=== PATIENT | female | born 1990 | race Caucasian/White ===

== ENCOUNTER 2018-05-04 20:46 | Observation (INO) ==
[2018-05-04] MEDS ORDERED: 0.9 % Sodium Chloride 1,000 ML IVC ONE ×2 (20:52→22:56)
[2018-05-04 21:16] LABS: Bilirubin,Urine Negative (Negative); Blood,Urine Negative (Negative); Clarity,Urine Cloudy (Clear); Color,Urine Yellow (Yellow); Glucose,Urine (UA) Normal (Normal); Ketones,Urine 40 mg/dL (Negative); Leukocyte Esterase,Urine Small (Negative); Nitrite,Urine Positive (Negative); Protein,Urine Trace mg/dL (Neg-Trace); Specific Gravity,Urine 1.027 (1.010-1.025); Urobilinogen,Urine Normal (Normal)
[2018-05-04 21:17] LABS: Bacteria,Urine Many per hpf (None-Few); Hyaline Casts,Urine None Seen per lpf (None-Few); Squamous Epithelial Cell,Urine Many per lpf (None-Few)
[2018-05-04 21:25] LABS: Amphetamine Screen,Urine Negative ng/mL (Cutoff=1000); Barbiturate Screen,Urine Negative ng/mL (Cutoff=200); Benzodiazepines Screen,Urine Negative ng/mL (Cutoff=200); Cannabinoid Screen,Urine Negative ng/mL (Cutoff = 50); Cocaine Screen,Urine Negative ng/mL (Cutoff= 300); Opiate Screen,Urine Negative ng/mL (Cutoff=300); Phencyclidine Screen,Urine Negative ng/mL (Cutoff=25)
[2018-05-04] MEDS ORDERED: *HR* LORazepam 2 MG/ML VIAL ONE (21:26)
[2018-05-04] MEDS ORDERED: *HR* LORazepam 2 MG/ML VIAL IVP ONE (21:30)
[2018-05-04 21:47] LABS: Basophils % 0.1 %; Eosinophils % 0.1 %; Hemoglobin 12.7 g/dL (11.5-15.4); Immature Granulocytes % 0.1 % (0-4); Lymphocytes # 2.6 K/mcL (0.6-4.6); Lymphocytes % 36.6 %; Mean Corpuscular HGB Conc 33.4 g/dL (31.6-35.5); Mean Corpuscular Hemoglobin 31.2 pg (28.0-33.3); Mean Corpuscular Volume 93.4 fL (83.0-100.0); Mean Platelet Volume 8.9 fL (9.4-12.4); Monocytes # 0.7 K/mcL (0.0-1.3); Monocytes % 9.4 %; Neutrophils # 3.9 K/mcL (1.6-8.9); Platelet Count 287 K/mcL (140-400); Red Blood Count 4.07 M/mcL (3.82-4.97); Red Cell Distribution Width 12.6 % (11.5-14.5); Segmented Neutrophils % 53.7 %
[2018-05-04 22:12] LABS: Alanine Aminotransferase 42 Units/L (7-52); Albumin 4.5 g/dL (3.5-5.7); Albumin/Globulin Ratio 1.6 (1.1-2.2); Alkaline Phosphatase 46 Units/L (34-104); Aspartate Amino Transferase 29 Units/L (13-39); BUN/Creatinine Ratio 8 (6-26); Bilirubin,Total 0.4 mg/dL (0.3-1.0); Blood Urea Nitrogen 8 mg/dL (6-20); Calcium 9.3 mg/dL (8.6-10.3); Carbon Dioxide 17 mEq/L (23-29); Chloride 106 mEq/L (98-107); Globulin 2.8 g/dL (2.4-3.5); Glucose 146 mg/dL (70-105); Osmolality,Calculated 289 (280-300); Potassium 3.1 mEq/L (3.5-5.1); Sodium 139 mEq/L (136-145); Total Protein 7.3 g/dL (6.4-8.9); eGFR For African Americans > 60 (> 60); eGFR For Non-African Americans > 60 (> 60)
[2018-05-04] MEDS ORDERED: cefTRIAXone 2,000 MG in Water for inj. (sterile) 20 ML 20 ML IVP ONE (22:56)
[2018-05-04] MEDS ORDERED: levETIRAcetam 1,000 MG in 0.9 % Sodium Chloride 100 ML IVPB ONE (23:13)
--- NOTE | 2018-05-04 23:16 | Emergency Department Note ---
Disposition Clinical Impression: Seizure, Hypokalemia UTI (urinary tract infection) Qualifiers: Urinary tract infection type: site unspecified Hematuria presence: without hematuria Qualified Code(s): N39.0 - Urinary tract infection, site not specified Disposition: Admitted As Inpatient Condition: Good Referrals: NONE,PCP [Primary Care Provider] - Seizure HPI - General Chief Complaint: ED Seizure Stated Complaint: Seizure Time Seen by Provider: 05/04/18 20:51 Source: patient Mode of arrival: ambulatory Limitations: no limitations Nursing Notes Reviewed: Yes Vital Signs Reviewed: Yes - History of Present Illness HPI Narrative: Patient presents for evaluation of seizure. Patient had seizure at home. She describes headache that started earlier in the day. She states that she gets frequent headaches. Patient typically takes [id number] medications for these. Patient took 2 Excedrin and then had seizure-like activity which is described as contractures of the upper extremities and clenching of the teeth. The patient came to the emergency department with mild drowsiness and sleepiness but mental status had improved and she is able to have a conversation. There was no focal deficits on exam. The patient does not have a history of seizures. 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 The patient has not had fevers or chills or other previous infectious symptoms. At this time the patient will undergo further evaluation for first-time seizure. - Related Data Previous Rx's Medication Instructions Recorded Amoxicillin [Amoxil] 500 mg PO TID #30 capsule 02/09/16 Ibuprofen [Motrin] 800 mg PO Q8HR #30 tablet 02/09/16 traMADol [Ultram] 50 mg PO QID PRN #16 tablet 02/09/16 Diclofenac Sodium [Voltaren] 50 mg PO Q8HR PRN #30 tablet. 03/04/16 cephALEXin [Keflex] 500 mg PO QID #40 capsule 03/04/16 Naproxen [EC-Naprosyn] 500 mg PO BID #10 tablet. 03/12/16 TraZODone 50 mg PO HS PRN #30 tablet 03/14/16 Venlafaxine HCl [Effexor Xr] 75 mg PO DAILY #30 cap.er.24h 03/14/16 Acetaminophen [Tylenol] 650 mg PO Q6HR PRN 10 Days tablet 01/06/17 MDD 3250 Ibuprofen [Motrin] 600 mg PO Q6HR PRN #40 tab MDD 3200 01/06/17 Escitalopram [Lexapro] 10 mg PO DAILY #30 tablet 03/23/17 HydrOXYzine 10 mg PO HS #30 tablet 03/23/17 Tobramycin Opth OINT [Tobrex] 0.5 inch RIGHT EYE TID #1 each 04/09/17 Allergies Allergy/AdvReac Type Severity Reaction Status Date / Time No Known Allergies Allergy Verified 03/23/17 17:25 Review of Systems: CONSTITUTIONAL: Fatigue No weight loss, fever, chills, weakness HEENT: Eyes: No visual changes. Ears, Nose, Throat: No hearing loss, difficulty talking or unable to swallow. SKIN: No rash or itching. CARDIOVASCULAR: No chest pain, chest pressure or chest discomfort. No palpitations or edema. RESPIRATORY: No shortness of breath, cough or sputum. GASTROINTESTINAL: No anorexia, nausea, vomiting or diarrhea. No abdominal pain or blood. GENITOURINARY: No burning on urination or hematuria. NEUROLOGICAL: Headache with seizure-like activity No, numbness or tingling in the extremities. No change in bowel or bladder control. MUSCULOSKELETAL: No muscle pain, back pain, joint pain or stiffness. Past Medical History - Past Medical History Medical history: Reports: no medical history Surgical history: Reports: Psychiatric history: Reports: anxiety, bipolar, depression, previous psychiatric hospitalization, other VICE PRINCIPAL history: Reports: spontaneous - Social History Smoking Status: Current every day smoker Smokeless Tobacco Status: No Alcohol use: Reports: none Drug use: Reports: marijuana Physical Exam General: Resting comfortably in bed. Mildly sleepy. Head: Normocephalic Atraumatic Eyes: PERRL, EOMI ENT: Airway patent, no stridor Neck: supple, no meningismus Chest: Lungs clear to auscultation bilateral Cardiac: Regular rate and rhythm, no murmurs, rubs or gallops Abdomen: soft, nontender, nondistended; no guarding, rebound, or tenderness to percussion Musculoskeletal: Calves symmetric, nontender, no palpable cord Skin: No rash, normal skin tone Neuro: Alert and Oriented to person, place, and time; No focal deficit, CN 2-12 symmetric and intact; upper and lower extremities 5 out of 5 with no neurovascular deficit. Finger to nose intact. - General General appearance: alert, in no apparent distress Course - Reevaluation(s) Reevaluation #1: Patient had seizure-like activity within the emergency department. Last approximately 3-4 minutes. Generalized shaking of the upper extremities. Pupils dilated and nonreactive. Clenching of the teeth. Patient was given 2 mg of IV Ativan and placed on a nonrebreather. Seizure stopped it has been controlled since. We will discuss with neurology. Urine concerning for urinary tract infection. Potassium low at 3.1. Potassium replaced. Ceftriaxone given. - Consultations Consultation #1: Discussed with neurology. This is the patient's second seizure. She can be placed on 1 g of Keppra and then placed on 250 mg twice a day. The patient can undergo MRI with contrast while observed in the hospital. They will consult. Consultation #2: Discussed with hospitalist. Patient accepted for admission. Vital Signs Temperature 97.7 F 05/04/18 20:49 Pulse Rate 94 05/04/18 20:49 Respiratory Rate 16 05/04/18 20:49 Blood Pressure 108/58 05/04/18 20:49 O2 Sat by Pulse Oximetry 99 05/04/18 20:49 Temperature 98.1 F 05/04/18 23:01 Pulse Rate 109 05/04/18 23:01 Respiratory Rate 18 05/04/18 23:01 Blood Pressure 104/56 05/04/18 23:01 O2 Sat by Pulse Oximetry 99 05/04/18 23:01 Oxygen Delivery Oxygen Delivery Room Air Seizure - Lab Data Result diagrams: 05/04/18 20:52 05/04/18 20:52 Lab Results 05/04/18 05/04/18 05/04/18 Range/Units 20:52 20:52 21:07 WBC 7.2 (4.3-11.1) K/mcL RBC 4.07 (3.82-4.97) M/mcL Hgb 12.7 (11.5-15.4) g/dL Hct 38.0 (35.3-44.9) % MCV 93.4 (83.0-100.0) fL MCH 31.2 (28.0-33.3) pg MCHC 33.4 (31.6-35.5) g/dL RDW 12.6 (11.5-14.5) % Plt Count 287 (140-400) K/mcL MPV 8.9 L (9.4-12.4) fL Immature Gran % 0.1 (0-4) % Seg Neutrophils % 53.7 % Lymphocytes % 36.6 % Monocytes % 9.4 % Eosinophils % 0.1 % Basophils % 0.1 % Neutrophils # 3.9 (1.6-8.9) K/mcL Lymphocytes # 2.6 (0.6-4.6) K/mcL Monocytes # 0.7 (0.0-1.3) K/mcL Eosinophils # 0.0 (0.0-0.6) K/mcL Basophils # 0.0 (0.0-0.2) K/mcL Sodium 139 (136-145) mEq/L Potassium 3.1 L (3.5-5.1) mEq/L Chloride 106 (98-107) mEq/L Carbon Dioxide 17 L (23-29) mEq/L BUN 8 (6-20) mg/dL Creatinine 1.00 (0.60-1.20) mg/dL Est GFR ( Amer) > 60 (> 60) Est GFR (Non-Af Amer) > 60 (> 60) BUN/Creatinine Ratio 8 (6-26) Glucose 146 H (70-105) mg/dL Calculated Osmolality 289 (280-300) Calcium 9.3 (8.6-10.3) mg/dL Total Bilirubin 0.4 (0.3-1.0) mg/dL AST 29 (13-39) Units/L ALT 42 (7-52) Units/L Alkaline Phosphatase 46 (34-104) Units/L Serum Total Protein 7.3 (6.4-8.9) g/dL Albumin 4.5 (3.5-5.7) g/dL Globulin 2.8 (2.4-3.5) g/dL Albumin/Globulin Ratio 1.6 (1.1-2.2) Urine Color Yellow (Yellow) Urine Clarity Cloudy A (Clear) Urine pH 6.0 (5.0-8.0) pH Units Ur Specific [place] 1.027 H (1.010-1.025) Urine Protein Trace (Neg-Trace) mg/dL Urine Glucose (UA) Normal (Normal) mg/dL Urine Ketones 40 H (Negative) mg/dL Urine Blood Negative (Negative) Urine Nitrite Positive A (Negative) Urine Bilirubin Negative (Negative) Urine Urobilinogen Normal (Normal) mg/dL Ur Leukocyte Esterase Small H (Negative) Urine Microscopic RBC 3-5 H (0-3) per hpf Urine Microscopic WBC 5-15 H (0-3) per hpf Ur Squamous Epith Cells Many H (None-Few) per lpf Urine Bacteria Many H (None-Few) per hpf Hyaline Casts None Seen (None-Few) per lpf Urine Opiates Screen (Foxmhw=936) ng/mL Ur Barbiturates Screen (Svvbwp=602) ng/mL Ur Phencyclidine Scrn (Cutoff=25) ng/mL Ur Amphetamines Screen (Qquekf=7060) ng/mL U Benzodiazepines Scrn (Ixfoix=368) ng/mL Urine Cocaine Screen (Cutoff= 300) ng/mL U Marijuana (THC) Screen (Cutoff = 50) ng/mL Ur Drug Screen Interp 05/04/18 Range/Units 21:07 WBC (4.3-11.1) K/mcL RBC (3.82-4.97) M/mcL Hgb (11.5-15.4) g/dL Hct (35.3-44.9) % MCV (83.0-100.0) fL MCH (28.0-33.3) pg MCHC (31.6-35.5) g/dL RDW (11.5-14.5) % Plt Count (140-400) K/mcL MPV (9.4-12.4) fL Immature Gran % (0-4) % Seg Neutrophils % % Lymphocytes % % Monocytes % % Eosinophils % % Basophils % % Neutrophils # (1.6-8.9) K/mcL Lymphocytes # (0.6-4.6) K/mcL Monocytes # (0.0-1.3) K/mcL Eosinophils # (0.0-0.6) K/mcL Basophils # (0.0-0.2) K/mcL Sodium (136-145) mEq/L Potassium (3.5-5.1) mEq/L Chloride (98-107) mEq/L Carbon Dioxide (23-29) mEq/L BUN (6-20) mg/dL Creatinine (0.60-1.20) mg/dL Est GFR ( Amer) (> 60) Est GFR (Non-Af Amer) (> 60) BUN/Creatinine Ratio (6-26) Glucose (70-105) mg/dL Calculated Osmolality (280-300) Calcium (8.6-10.3) mg/dL Total Bilirubin (0.3-1.0) mg/dL AST (13-39) Units/L ALT (7-52) Units/L Alkaline Phosphatase (34-104) Units/L Serum Total Protein (6.4-8.9) g/dL Albumin (3.5-5.7) g/dL Globulin (2.4-3.5) g/dL Albumin/Globulin Ratio (1.1-2.2) Urine Color (Yellow) Urine Clarity (Clear) Urine pH (5.0-8.0) pH Units Ur Specific [place] (1.010-1.025) Urine Protein (Neg-Trace) mg/dL Urine Glucose (UA) (Normal) mg/dL Urine Ketones (Negative) mg/dL Urine Blood (Negative) Urine Nitrite (Negative) Urine Bilirubin (Negative) Urine Urobilinogen (Normal) mg/dL Ur Leukocyte Esterase (Negative) Urine Microscopic RBC (0-3) per hpf Urine Microscopic WBC (0-3) per hpf Ur Squamous Epith Cells (None-Few) per lpf Urine Bacteria (None-Few) per hpf Hyaline Casts (None-Few) per lpf Urine Opiates Screen Negative (Xbxldr=222) ng/mL Ur Barbiturates Screen Negative (Aiiwfq=272) ng/mL Ur Phencyclidine Scrn Negative (Cutoff=25) ng/mL Ur Amphetamines Screen Negative (Hcuejq=1759) ng/mL U Benzodiazepines Scrn Negative (Yuejal=079) ng/mL Urine Cocaine Screen Negative (Cutoff= 300) ng/mL U Marijuana (THC) Screen Negative (Cutoff = 50) ng/mL Ur Drug Screen Interp See Below
[2018-05-04] MEDS ORDERED: Ondansetron 4 MG/2 ML VIAL ONE (23:42)
[2018-05-04] MEDS ORDERED: Ondansetron 4 MG/2 ML VIAL IVP ONE (23:43)
[2018-05-05] MEDS ORDERED: Acetaminophen 325 MG TABLET PO PRN (00:22)
[2018-05-05] MEDS ORDERED: Naloxone 0.4 MG/ML INJ IVP PRN (00:22)
[2018-05-05] MEDS ORDERED: *HR* LORazepam 2 MG/ML VIAL IVP PRN (00:25)
[2018-05-05] MEDS ORDERED: Metoclopramide 10 MG/2 ML VIAL IVP ONE (00:32)
--- NOTE | 2018-05-05 00:50 | Internal Med History&Physical ---
Date of Encounter: 05/05/18 Time of Encounter: 00:15 Internal Medicine - H&P: HPI Chief complaint: Seizure Admitted From: Home Plans for Post Hospital Care: Home History of present illness: Ms. Aguilar is a 28 year old female present to ER for seizure activity. Past medical history is significant for anxiety and depression. Patient has 2 seizure activity today. One of them is witnessed by ER nurse. Patient has generalized seizure with whole-body shaking. Patient has postictal confusion for about 20 minutes. Patient denies tongue bite. Patient had urinary incontinence during seizure. Patient was given Keppra 1000 mg IV once and Ativan 2 mg IV once in the emergency room. Her seizure has been controlled. Patient denies previous seizure. Patient had "brain bleeding" in last year July (old CT results reviewed, which shows epidural hematoma). Repeat a CT scan in ER shows no acute abnormalities. Neurology was counseled by ER doctor, recommend Keppra 250 twice a day and MRI in a.m. Patient was admitted for further management. Past Med Surg Social Fam HX - Past Medical History Medical history: no medical history Psychiatric history: anxiety, bipolar, depression, previous psychiatric hospitalization, other - Past Surgical History Surgical History: Additional surgical history: D&C - Social History Smoking Status: Current every day smoker Smokeless Tobacco Status: No Alcohol use: none Drug use: marijuana - Family History Mother History Unknown: Yes Internal Medicine - H&P: Meds No Known Home Drugs 05/05/18 [History] 3 Allergy/AdvReac Type Severity Reaction Status Date / Time No Known Allergies Allergy Verified 03/23/17 17:25 All Systems PM: A 10-system review of systems was performed and is negative for pertinent findings except as documented above in the HPI. - Constitutional Vitals: Temp Pulse Resp BP Pulse Ox 98.1 F 109 17 106/53 99 05/04/18 23:01 05/04/18 23:01 05/05/18 00:35 05/05/18 00:35 05/04/18 23:01 General appearance: Present: A&O X 3, no acute distress, answers questions appropriately - Head Head exam: Present: atraumatic, normocephalic - Eye Eye exam: Present: PERRL, conjuntiva pink, sclera anicteric Pupils: Present: PERRL - Neck Neck exam general surgery: Present: supple, trachea midline. Absent: lymphadenopathy - Respiratory Respiratory exam: Present: CTAB. Absent: accessory muscle use, rales, rhonchi, wheezes - Cardiovascular Cardiovascular exam: Present: RRR, +S1, +S2. Absent: diastolic murmur, gallop, rubs, systolic murmur - GI/Abdominal GI/Abdominal exam: Present: normal bowel sounds, soft, no peritoneal signs. Absent: distended, tenderness - Extremities Exam Extremities exam: Present: warm, radial pulses palpable and symmetrical. Absent : calf tenderness, cyanotic, pedal edema - Neurological Exam Neurological exam: Present: CN II-XII intact, oriented X3, no focal deficits. Absent: pronater drift, facial droop, speech deficit - Skin Skin exam: Present: dry, intact Internal Med - H&P Results - Labs CBC & Chem 7: 05/04/18 20:52 05/04/18 20:52 - Assessment and plan (1) DVT prophylaxis Current Visit: Yes Status: Acute Assessment and plan: Patient is young and ambulating well. No anticoagulation placed (2) Hypokalemia Current Visit: Yes Status: Acute Assessment and plan: Patient was given potassium supplement in the emergency room. Follow-up potassium level in a.m. (3) Seizure Current Visit: Yes Status: Acute Assessment and plan: Etiology is undetermined. Patient to report history of intracranial hemorrhage. Patient has no history of epilepsy. - Place patient on continuous cardiac monitoring - Keppra loading dose 1000 mg IV given in ER, follow-up with to 250 mg IV twice a day. - Neurology consult - MR brain in a.m. - Seizure precaution, aspiration precaution - Ativan 2mg IV when necessary for seizure activity (4) UTI (urinary tract infection) Current Visit: Yes Status: Acute Assessment and plan: UA shows UTI. Rocephin IV was started by ER, will continue. Follow-up urine culture. Qualifiers: Urinary tract infection type: site unspecified Hematuria presence: without hematuria Qualified Code(s): N39.0 - Urinary tract infection, site not specified (5) Tobacco abuse Current Visit: Yes Status: Acute Assessment and plan: Smoking cessation education. Patient said she does not need nicotine patch - Time Spent With Patient Total time spent is greater than 50% in coordination of care (as documented) at patient's floor/unit and/or counseling patient: 40 minutes Greater than 35 minutes
[2018-05-05 03:42] LABS: Basophils % 0.2 %; Eosinophils % 0.2 %; Hematocrit 30.4 % (35.3-44.9); Immature Granulocytes % 0.2 % (0-4); Lymphocytes # 1.7 K/mcL (0.6-4.6); Lymphocytes % 26.5 %; Mean Corpuscular HGB Conc 32.9 g/dL (31.6-35.5); Mean Corpuscular Hemoglobin 29.9 pg (28.0-33.3); Mean Platelet Volume 9.1 fL (9.4-12.4); Monocytes # 0.5 K/mcL (0.0-1.3); Monocytes % 8.2 %; Neutrophils # 4.1 K/mcL (1.6-8.9); Platelet Count 207 K/mcL (140-400); Red Blood Count 3.34 M/mcL (3.82-4.97); Red Cell Distribution Width 12.7 % (11.5-14.5); Segmented Neutrophils % 64.7 %
[2018-05-05 04:19] LABS: BUN/Creatinine Ratio 10 (6-26); Blood Urea Nitrogen 7 mg/dL (6-20); Calcium 8.1 mg/dL (8.6-10.3); Carbon Dioxide 19 mEq/L (23-29); Chloride 114 mEq/L (98-107); Chol/HDL Ratio 1.8 (0-4.9); Cholesterol 73 mg/dL (< 200); Glucose 95 mg/dL (70-105); HDL Cholesterol 41 mg/dL (40-59); LDL Cholesterol,Calculated 26 mg/dL (0-99); Magnesium 1.9 mg/dL (1.6-2.6); Osmolality,Calculated 288 (280-300); Phosphorous 3.6 mg/dL (2.7-4.5); Sodium 140 mEq/L (136-145); Triglycerides 28 mg/dL (< 150); eGFR For African Americans > 60 (> 60); eGFR For Non-African Americans > 60 (> 60)
[2018-05-05] MEDS ORDERED: levETIRAcetam 250 MG in 0.9 % Sodium Chloride 100 ML IVPB SCH (09:00)
--- NOTE | 2018-05-05 14:19 | Neurology - Consult Note ---
Date of Encounter: 05/05/18 Time of Encounter: 14:15 Assessment and Plan (1) New onset seizure Current Visit: Yes Status: Acute This patient who apparently had 2 generalized tonic-clonic seizure 1 with urinary incontinence weakness in the emergency room without any focal findings on her neurological examination and without any evidence of bleed or infarct on her CT or MRI. She does have a history of subdural in the past as well as a history of substance abuse perhaps could be the contributing factor though currently her urine tox was negative. Considering to generalized tonic-clonic witnessed seizure typical description I think she would benefit from being on antiepileptic medication She is already been is started on the Keppra suggested to continue she should be on seizure precautions : Patient was asked not to drive until seizure-free for 6 months. Patient was asked not to work in close proximity of machines with moving parts, not to swim unsupervised, not to take tub baths or showers with water accumulation, and not to work at high places. at the same time she should use precautions, and should NOT get while on seizures medications, and if she plan to get she should discuss it with neurology and her OB in advance. 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 The mass expands the bone and slightly deforms the right cerebellar hemisphere. There is no adjacent brain edema or invasion. The mass measures 2.1 x 1.8 x 1.9 cm. It is relatively stable since 2015. DONT THINK REASON FOR HER SEIZURES, but history of previous bleed can be the reason for her seizures History of Present Illness HPI: Ms. Aguilar is a 28 year old female admitted via ER for new onset seizures, Past medical history is significant for anxiety and depression. According to the report patient had generalized tonic-clonic seizure earlier and then in the emergency room she has another episode witnessed by ER nurses. Patient has generalized convulsion with tonic-clonic activity followed by postictal confusion for about 20 minutes. Patient had urinary incontinence during seizure, but did not have tongue bite she was given Keppra 1000 mg IV once and Ativan 2 mg IV once in the emergency room. Patient denies previous seizure. Patient had "brain bleeding" in last year July (old CT results reviewed, which shows epidural hematoma). Repeat a CT scan in ER shows no acute abnormalities. Now patient seemed to be back to her baseline no focal motor deficit she just woke up and sleepy Past Med Surg Social Fam HX - Past Medical History Medical history: no medical history Psychiatric history: anxiety, bipolar, depression, previous psychiatric hospitalization, other - Past Surgical History Surgical History: Additional surgical history: D&C - Social History Smoking Status: Current every day smoker Smokeless Tobacco Status: No Alcohol use: none Drug use: marijuana - Family History Mother History Unknown: Yes Medications and Allergies No Known Home Drugs 05/05/18 [History] 3 Allergy/AdvReac Type Severity Reaction Status Date / Time No Known Allergies Allergy Verified 03/23/17 17:25 All Systems: The remainder of the systems were reviewed and are negative Physical Examination - Vital Signs Vital Signs: Initial Vital Signs Temp Pulse Resp BP Pulse Ox 97.7 F 94 16 108/58 99 05/04/18 20:49 05/04/18 20:49 05/04/18 20:49 05/04/18 20:49 05/04/18 20:49 - Exam Exam: GENERAL: Comfortable in no acute distress HEENT: Normal LUNGS: CTA HEART: RRR, S1 S2 Audible, no murmur EXTREMITIES: No Pedal edema. DETAILED NEUROLOGICAL EXAMINATION: MENTAL STATUS: Oriented to person, place, date and situation. Memory: knows the President, Aware of recent events Recent Memory Intact Cranial Nerve Examination: CN - II: Visual Acuity, Field of Vision Normal, Fundus examination: No disk edema, Pupils- size shape reaction to light and accommodation: All normal. CN III, IV, : External ocular movements were intact, Pupils were reactive, Nodrooping of the eyelids CN V: Sensation over the face to light touch and pinprick all normal. Corneal reflexes not tested, jaw jerk normal. CN VII: No facial asymmetry, no flattening of nasolabial folds, no difficulty in closing the eyes, no loss of forehead wrinkles, no difficulty in eye-closure, frowning raising eyebrows. CNVIII: No significant hearing loss CN IX, X: Uvula centralized not deviated, Gag reflex: Not tested CN X1: Sternocleidomastoid, trapezius, normal or evidence of any weakness. CN X11: No Dysarthria, no wasting or fibrilation f tongue muscles, no deviation, tongue muscle strength normal. Motor examination: No hypertrophy, tone was normal, power grade 0-5 Upper limbs Proximal- No difficulty in lifting the arms above the head. Distal- No weakness in distal muscles On formal testing 5/5 all over Lower limbs On formal testing 5/5 all over Coordination: Aoatpi-cb-gisp normal. Target pursuit normal finger tapping normal, Rapid alternating moment of wrist normal Sensory system: Superficial sensations- Touch normal. Pain- Pinprick, Temperature all normal, Deep sensation normal, Joint position sense normal. Cortical sensation, Tactile discrimination, localization and extinction all normal. Deep tendon reflexes. Symmetrical bilateral, No evidence of Babinski. No sign of meningeal irritation Gait Examination: Deferred Results - Laboratory Findings CBC and BMP: 05/05/18 03:20 05/05/18 03:20 Abnormal lab findings: Abnormal lab results RBC 3.34 M/mcL (3.82-4.97) L 05/05/18 03:20 Hgb 10.0 g/dL (11.5-15.4) L D 05/05/18 03:20 Hct 30.4 % (35.3-44.9) L 05/05/18 03:20 MPV 9.1 fL (9.4-12.4) L 05/05/18 03:20 Chloride 114 mEq/L (98-107) H 05/05/18 03:20 Carbon Dioxide 19 mEq/L (23-29) L 05/05/18 03:20 Calcium 8.1 mg/dL (8.6-10.3) L 05/05/18 03:20 Urine Clarity Cloudy (Clear) A 05/04/18 21:07 Ur Specific [place] 1.027 (1.010-1.025) H 05/04/18 21:07 Urine Ketones 40 mg/dL (Negative) H 05/04/18 21:07 Urine Nitrite Positive (Negative) A 05/04/18 21:07 Ur Leukocyte Esterase Small (Negative) H 05/04/18 21:07 Urine Microscopic RBC 3-5 per hpf (0-3) H 05/04/18 21:07 Urine Microscopic WBC 5-15 per hpf (0-3) H 05/04/18 21:07 Ur Squamous Epith Cells Many per lpf (None-Few) H 05/04/18 21:07 Urine Bacteria Many per hpf (None-Few) H 05/04/18 21:07 - Diagnostic Findings Additional findings: CT scan of the head shows An intraosseous, spherical, circumscribed, nonenhancing, partially diffusion restricting, lamellated appearing mass is in the right occipital bone. The mass expands the bone and slightly deforms the right cerebellar hemisphere. There is no adjacent brain edema or invasion. The mass measures 2.1 x 1.8 x 1.9 cm. It is relatively stable since 2014. No evidence of any bleed reported history of Left occipital 9mm subdural Hematoma noted on CT may 15, not noticed on current CT or MRI Consult Discharge Plan - Plan Referrals: NONE,PCP [Primary Care Provider] -
[2018-05-05 15:23] VITALS: BP 101/61
--- NOTE | 2018-05-05 16:09 | Discharge Summary ---
<Shen Peterson - Last Filed: 05/05/18 16:06> - NOTES TO OUTPATIENT PROVIDER Notes to Outpatient Provider: Ms. Aguilar was admitted for observation after 2 tonic-clonic seizures on 05/05. Started her on Keppra 250 BID. Orders not resulted at time of discharge: Pending orders 05/05/18 03:30 Culture,Urine [RM] AM 0400 Date of Encounter: 05/05/18 Time of Encounter: 16:06 - Discharge Diagnosis (1) Seizure Priority: Primary Status: Acute Assessment and Plan: Per Neurology recommendations, see below: Keppra 250mg BID she should be on seizure precautions : Patient was asked not to drive until seizure-free for 6 months. Patient was asked not to work in close proximity of machines with moving parts, not to swim unsupervised, not to take tub baths or showers with water accumulation, and not to work at high places. at the same time she should use precautions, and should NOT get while on seizures medications, and if she plan to get she should discuss it with neurology and her OB in advance. EEG could be done as outpatient f/u in neurology in 3/4 weeks (2) Hypokalemia Priority: Secondary Status: Resolved Assessment and Plan: given potassium and labs this AM revealed level at 4.0 (3) UTI (urinary tract infection) Priority: Secondary Status: Acute Assessment and Plan: Pt received Rocephin while admitted. Will send home with Cipro rx. Qualifiers: Urinary tract infection type: site unspecified Hematuria presence: without hematuria Qualified Code(s): N39.0 - Urinary tract infection, site not specified (4) Tobacco abuse Priority: Secondary Status: Acute Assessment and Plan: Smoking cessation encouraged Hospital course: Ms. Aguilar is a 28 year old female Discharge discussed with: patient, family, nurse Time spent discussing smoking cessation with patient: 3 to 10 minutes - Time Spent with Patient Total time spent providing and/or coordinating discharge services: - Discharge Medications Prescriptions: Ciprofloxacin HCl [Cipro] 250 mg PO BID 3 Days #6 tab levETIRAcetam [Keppra] 250 mg PO BID 30 Days #60 tablet Home Medications: Ciprofloxacin HCl [Cipro] 250 mg PO BID 3 Days #6 tab 05/05/18 [Rx] levETIRAcetam [Keppra] 250 mg PO BID 30 Days #60 tablet 05/05/18 [Rx] Allergies/Adverse Reactions: 3 Allergy/AdvReac Type Severity Reaction Status Date / Time No Known Allergies Allergy Verified 03/23/17 17:25 Date of admission: 05/05/18 00:00 Primary care physician: PCP NONE Discharging clinician: Shen Peterson - Constitutional Vitals: Temp Pulse Resp BP Pulse Ox 98.2 F 93 18 101/61 98 05/05/18 15:21 05/05/18 15:21 05/05/18 15:21 05/05/18 15:21 05/05/18 15:21 General appearance: Present: A&O X 3, no acute distress, answers questions appropriately Exam: Head: normocephalic, atraumatic Eyes: PERRL, EOMI, conjunctiva pink, sclera anicteric Neck: supple, trachea midline Lungs: CTA bilaterally. No wheezes, rales, or rhonchi noted. Heart: RRR. No murmurs, clicks, or rubs GI: abdomen soft, non-tender, non-distended Extremities: warm, normal ROM Neuro: A&Ox3, no focal deficits, no speech difficulty Skin: warm, dry, intact - Patient Status Disposition: Home, Self-Care Condition: Good Functional capacity at discharge: independent ambulation Overall status at discharge: patient is back to baseline - Discharge Instructions Instructions: Epilepsy (DC) Follow Up With: John Paul Hutchins MD [Partnered Physician] - (office will call you to schedule appointment in the next few weeks as a follow up for the seizure activity.) NONE,PCP [Primary Care Provider] - Forms: Inpatient Work/School Release - Diet and Activity Activity: resume usual activities as tolerated Diet: regular diet <Mariano Franco - Last Filed: 05/05/18 18:17> Orders not resulted at time of discharge: Pending orders 05/05/18 03:30 Culture,Urine [RM] AM 0400 Date of Encounter: 05/05/18 - Discharge Diagnosis (1) Tonic-clonic seizure disorder Priority: Primary Status: Acute (2) Seizure Status: Acute (3) Hypokalemia Status: Resolved (4) UTI (urinary tract infection) Status: Acute Qualifiers: Urinary tract infection type: acute cystitis Hematuria presence: without hematuria Qualified Code(s): N30.00 - Acute cystitis without hematuria (5) Tobacco abuse Status: Acute Hospital course: Ms. Aguilar is a 28 year old female - Time Spent with Patient Total time spent providing and/or coordinating discharge services: Date of admission: 05/05/18 00:00 Primary care physician: PCP NONE - Constitutional Vitals: Temp Pulse Resp BP Pulse Ox 98.2 F 93 18 101/61 98 05/05/18 15:21 05/05/18 15:21 05/05/18 15:21 05/05/18 15:21 05/05/18 15:21 - Attending Attestation I examined this patient and my medical decision-making was reviewed with the Resident Physician on 05/05/18. I agree with the documented findings, disposition and treatment plan as described except to the extent set forth below. Ms Aguilar has been in observation for acute seizure. She has had no recurrence. She has been seen by ortho and is OK to go home. She is not to drive for 6 months or do other dangerous activities (documented in neuro note and above). She is now afebrile and ready for discharge Exam alert Comfortable Heart reg No wheeze abd soft Plan D/C home today.
[2018-05-05] MEDS ORDERED: cefTRIAXone 1,000 MG in Water for inj. (sterile) 20 ML 10 ML IVPB SCH (18:00)
--- NOTE | 2018-05-07 15:38 | Electrocardiograph Report ---
[address] [place], [place] [address] Test Date: 2018-05-04 Pat Name: Cheyenne Aguilar Department: 104 Room: 2NE19 Gender: F Mechanical Cad Drafter: : 1990 Requested By: [id number] Order Number: [id number] Reading MD: Nadir Ocampo Measurements Intervals [place] Rate: 86 P: 67 PA: 116 QRS: 81 QRSD: 80 T: 41 QT: 387 QTc: 431 Interpretive Statements SINUS RHYTHM WITH SHORT PA INTERVAL Electronically Signed On 05-07-2018 15:36:44 EDT by Nadir Ocampo
== END 2018-05-05 17:29 | disposition home or self-care (01) ==
LOC: EMEROO 20:46 → 2NENU 20:46 → SUATTDRO 05-05 → 2NENU 05-05 00:50
PROVIDERS: ADMIT General Practice; ATTEND Internal Medicine

== ENCOUNTER 2018-10-10 17:25 | Observation (INO) ==
[2018-10-10 17:45] LABS: Bilirubin,Urine Negative (Negative); Blood,Urine Negative (Negative); Clarity,Urine Clear (Clear); Color,Urine Yellow (Yellow); Glucose,Urine (UA) Normal (Normal); Ketones,Urine Negative (Negative); Leukocyte Esterase,Urine Negative (Negative); Nitrite,Urine Negative (Negative); PH,Urine 6.5 pH Units (5.0-8.0); Protein,Urine Negative (Neg-Trace); Specific Gravity,Urine 1.014 (1.010-1.025); Urobilinogen,Urine Normal (Normal)
--- NOTE | 2018-10-10 18:11 | OB/GYN Progress Note ---
Date of Encounter: 10/10/18 Time of Encounter: 18:09 - Assessment and Plan (1) Spotting and cramping affecting , antepartum Current Visit: Yes Status: Acute 4 day history of cramping and spotting which began after intercourse Cramping is intermittent and diffuse Admits to increased vaginal discharge Speculum exam shows white discharge, no bleeding, cervix closed U/A normal UDS + benzodiazapines G/C negative Vaginosis panel positive for BV. Rx flagyl. Discharge home with precautions. (2) 20 weeks gestation of Current Visit: Yes Status: Acute , 20w3d gestation Complicated by substance abuse, tobacco use (3) Substance abuse affecting , antepartum Current Visit: Yes Status: Acute History of opiate dependence Currently on subutex with [facility] Admits to taking larger doses than prescribed of subutex, is currently out of subutex Admits to buying percocet off the street and taking FOB's gabapentin Pt offered option to stay overnight for managment of her withdrawal sx and so she can talk to her subutex provider tomorrow morning. Pt declines. Pt in structed to contact [facility] in the morning to make arrangements since she plans to miss group tomorrow for a job interview. (4) Bacterial vaginosis Current Visit: Yes Status: Acute Discharge home with flagyl rx. Subjective - Subjective Principal diagnosis: Cramping at 20 weeks gestation of Interval history: Cheyenne Aguilar is a 28 y/o female presenting for cramping and spotting. She is at 20w3d and has care with Dr. Baker. [facility] heroin abuse, currently in [facility] for subutex, anxiety and depression. The cramping and spotting began 4 days ago after intercourse, cramping is intermittent, diffuse, and lasts about 1 minute. She also admits to increased vaginal discharge. She states that she has been taking larger doses than prescribed of her subutex and has run out. She has been buying percocet off the street and taking gabapentin that is prescribed to father of baby. She denies nausea, vomiting, fever, chills, chest pain, shortness of breath, dysuria or edema. Antepartum ROS: other (Cramping and spotting) Objective - Vital Signs Vital Signs: Intake and Output 10/10/18 10/10/18 10/10/18 07:59 15:59 23:59 Other: Weight 57 kg Patient Weight 10/10/18 23:59 Weight 57 kg - Exam FHR comments: FHR 135 bpm on doppler Auscultation: bilateral: normal Abdomen: Present: normal appearance, soft, gravid Uterus: Present: normal, firm Cervical dilation: 0 Comments: White discharge present on speculum exam, no bleeding noted, cervix is closed.
[2018-10-10 18:22] LABS: Amphetamine Screen,Urine Negative ng/mL (Cutoff=1000); Barbiturate Screen,Urine Negative ng/mL (Cutoff=200); Benzodiazepines Screen,Urine Positive ng/mL (Cutoff=200); Cannabinoid Screen,Urine Negative ng/mL (Cutoff = 50); Cocaine Screen,Urine Negative ng/mL (Cutoff= 300); Opiate Screen,Urine Negative ng/mL (Cutoff=300); Phencyclidine Screen,Urine Negative ng/mL (Cutoff=25)
[2018-10-10 19:35] LABS: Candida DNA Not Detected (Not Detect); Gardnerella DNA DETECTED (Not Detect); Trichomonas DNA Not Detected (Not Detect)
== END 2018-10-10 20:20 | disposition home or self-care (01) ==
LOC: 1NENULAB
PROVIDERS: ADMIT Registered Nurse; ATTEND Registered Nurse

== ENCOUNTER 2019-02-27 19:21 | Inpatient (IN) ==
[2019-02-27 19:07] LABS: Basophils % 0.2 %; Eosinophils # 0.1 K/mcL (0.0-0.6); Eosinophils % 0.6 %; Hematocrit 44.3 % (35.3-44.9); Hemoglobin 14.9 g/dL (11.5-15.4); Immature Granulocytes % 0.6 % (0-4); Lymphocytes # 2.3 K/mcL (0.6-4.6); Lymphocytes % 21.9 %; Mean Corpuscular HGB Conc 33.6 g/dL (31.6-35.5); Mean Corpuscular Hemoglobin 31.8 pg (28.0-33.3); Mean Corpuscular Volume 94.7 fL (83.0-100.0); Mean Platelet Volume 10.6 fL (9.4-12.4); Monocytes # 0.7 K/mcL (0.0-1.3); Monocytes % 6.3 %; Neutrophils # 7.5 K/mcL (1.6-8.9); Platelet Count 191 K/mcL (140-400); Red Blood Count 4.68 M/mcL (3.82-4.97); Red Cell Distribution Width 12.4 % (11.5-14.5); Segmented Neutrophils % 70.4 %
[2019-02-27 19:16] LABS: Amphetamine Screen,Urine Negative ng/mL (Cutoff=1000); Barbiturate Screen,Urine Negative ng/mL (Cutoff=200); Benzodiazepines Screen,Urine Negative ng/mL (Cutoff=200); Cannabinoid Screen,Urine Negative ng/mL (Cutoff = 50); Cocaine Screen,Urine Negative ng/mL (Cutoff= 300); Opiate Screen,Urine Negative ng/mL (Cutoff=300); Phencyclidine Screen,Urine Negative ng/mL (Cutoff=25)
--- NOTE | 2019-02-27 19:16 | OB/GYN History & Physical ---
Date of Encounter: 02/27/19 Time of Encounter: 19:03 Assessment and Plan (1) History of trichomonal vaginitis Current visit: Yes Status: Acute Treated in November test of cure for 02/14 negative (2) Elevated AFP Current visit: Yes Status: Acute Ultrasound and growth followed by M (3) Substance abuse affecting , antepartum Current visit: Yes Status: Acute Obtain Subutex from [facility] (4) Tobacco abuse Current visit: Yes Status: Acute (5) 40 weeks gestation of Current visit: Yes Status: Acute (6) Uterine contractions Current visit: Yes Status: Acute Admit to labor and delivery Epidural as desired Frequent repositioning TOLAC desired to transfer care to Dr. Auguste Anticipate (7) History of low transverse section Current visit: Yes Status: Acute Medical records from last section available, low transverse incision confirmed (8) Hepatitis C Current visit: Yes Status: Acute History of elevated liver enzymes we will check LFTs at this time and hepatitis C titer levels Qualifiers: Viral hepatitis chronicity: chronic Hepatic coma status: without hepatic coma Qualified Code(s): B18.2 - Chronic viral hepatitis C (9) History of seizures Current visit: Yes Status: Acute Patient was seen in ED and 2018 procedures. According to documentation patient was discharged home on Keppra twice a day, patient states she was never discharge discharged on any home medications and subsequently did not take any home medication, no further seizures since incident. History of Present Illness Chief complaint: Contractions HPI: Ms. Aguilar is a 29 year old female 40+3 weeks gestation presents to triage with reports of contractions. Patient states she started having contractions earlier today had becoming stronger more intense. Reports good movement, denies vaginal bleeding or leaking of fluid. care with Dr. Baker, gap in care during due to incarceration, elevated AFP in ultrasounds followed by MFM, history drug abuse, currently on Subutex, Trichomonas during , Pap with ASCUS and positive HPV, opiate use of , history of low transverse section for breech Labs: A+, rubella and varicella immune, GBS negative, all other serologies negative Past Med Surg Social Fam HX - Past Medical History Source: patient Medical history: seizures Additional medical history: Pt. states had "2 random seizures" last year (Testing negative) Psychiatric history: anxiety, bipolar, depression, previous psychiatric hospitalization, other - Past Surgical History Surgical History: Additional surgical history: 08/28/2013 - Social History Smoking Status: Current every day smoker Packs per day: 1/2 PPD Smokeless Tobacco Status: No Alcohol use: none Drug use: other - Family History Brother Hx Family Neurologic Disorders: Yes (hx of seizures) Obstetrical History - Pregnancies : 4 Para: 2 Term: 2 : 0 Ab's: 1 Livin Medications and Allergies Flintstones 1 tab PO DAILY 10/10/18 [History] Subutex 8 mg PO ONCE 10/10/18 [History] Allergy/AdvReac Type Severity Reaction Status Date / Time No Known Allergies Allergy Verified 03/23/17 17:25 Exam - Constitutional Constitutional: well developed, well nourished, no acute distress, average body habitus - Neck Neck exam: full ROM - Lungs Respiratory exam: CTAB - Cardiovascular Cardiovascular exam: RRR - Abdomen Abdomen: Present: gravid, non tender - Extremities Extremities exam: normal capillary refill, normal inspection - Cervix Dilation: 4 Results Result Diagrams: 02/27/19 18:40 All other labs normal. - VTE Reasons for not Prescribing Prophylaxis: Treatment not Indicated - Low risk for VTE
[~2019-02-27 19:21] MED LIST: Famotidine 20 MG/2 ML VIAL IVP PRN; Metoclopramide 10 MG/2 ML VIAL IVP PRN; Naloxone 0.4 MG/ML INJ IVP PRN; Ondansetron 4 MG/2 ML VIAL IVP PRN; Ringers Solution, Lactated 1,000 ML IVC SCH; Ringers Solution, Lactated 1,000 ML ONE
[2019-02-27] MEDS ORDERED: *HR* FentaNYL (PF) 100 MCG/2 ML VIAL ONE (19:44)
[2019-02-27] MEDS ORDERED: Bupivacaine-MPF 0.25% 10 ML VIAL ONE (19:44)
[2019-02-27] MEDS ORDERED: Lidocaine -MPF 2% 5 ML VIAL ONE (19:44)
[2019-02-27] MEDS ORDERED: Epidural Premix (fent/bupiv) 110 ML EP SCH (19:45)
[2019-02-27] MEDS ORDERED: Epidural Premix (fent/bupiv) 110 ML EP ONE (19:46)
--- NOTE | 2019-02-27 20:36 | OB Labor Progress Note ---
Date of Encounter: 02/27/19 Time of Encounter: 20:33 Labor Progress Note - Subjective Subjective: The patient reports being comfortable right after epidural placement. Called to the room due to heart rate deceleration - Vital Signs Vital Signs: Afebrile, vital signs stable with some transient relative hypotension following epidural placement - Cervix Cervix: 5/90/-1, vertex with a bulgy bag of water - Heart Tones Heart Tones: Variable deceleration for 2 minutes with return to baseline of 130s to 140s and reassuring pattern - [place]: Every 3-5 minutes, spacing out after epidural - Interventions Interventions: 40 week IUP with TAYLER before meals status post epidural placement with transient hypotension and bradycardia. Heart rate reassuring now with a reassuring pattern. Spontaneous contractions continued to occur - Plan Plan: Once that has been intrauterine resuscitation and heart rate tracing is stable, amniotomy is planned
--- NOTE | 2019-02-27 21:48 | Anesthesia Evaluation PreOp ---
Date of Encounter: 02/27/19 Time of Encounter: 19:27 - Past History Planned Operation: labor epidural Cardiac History: Denies any Significant Hx Pulmonary History: Smoker (1/2 ppd, no asthma or other problems.) TRAVEL AGENT History: Seizures (reports "seizure-like activity X2 last summer. Was evaluated and determined to likely be due to anxiety. No problems since, on no meds.), Other (Anxiety/depression) Other Medical History: Hepatic (Hepatitis C positive, diagnosed december 2014. States due to former IV drug use.), Other (on subutex since July 2018. States grajeda not used IV drugs since 2016.) Anesthesia History: No Prior Anesthetic Complications, Past Anesthesia (Has had a D&C and emergent c section with no problems with GA. No FHAP. Had epidural X@ without problems.) : Yes (, first del. vaginal, second del. c/s 2012.) Alcohol Use: none Drug use: other Medications and Allergies Flintstones 1 tab PO DAILY 10/10/18 [History] Subutex 8 mg PO ONCE 10/10/18 [History] Allergy/AdvReac Type Severity Reaction Status Date / Time No Known Allergies Allergy Verified 03/23/17 17:25 - Meds/Allergy Pre-op Review Medications Reviewed: Yes Allergies Reviewed: Yes Beta Blockers on Current Med List: No Anesthesia Results - Labs 02/27/19 18:40 Anesthesia Exam 115/76, 80, 16. FHTs 130s. Height: 5'8" Weight: 66kg NPO (# of Hours): 3 Pain Scale: 8 Pain Scale Used: Numeric (1 - 10) - HEENT Pupil (Motor): Pupils equal Mallampati: II Teeth: Normal Oral Opening: Greater than 3 - TRAVEL AGENT LOC: Oriented TRAVEL AGENT Motor: Normal RUE, Normal LUE, Normal RLE, Normal LLE, Normal Face TRAVEL AGENT Sensory: Normal: RUE, LUE, RLE, LLE, Face - Cardiac Rhythm: Regular - Pulmonary Breath Sounds: bilateral Clear Respiratory Effort: Symmetrical Anesthesia Assess/Plan ASA Score: 3 (smoker, Hepatitis C, former IV drug user and on subutex, , anxiety/depression.) Level of consciousness: Cooperative, Oriented, Tranquil Anesthetic Plan: Epidural Monitoring Plan: Standard Monitors
--- NOTE | 2019-02-27 21:55 | OB Labor Progress Note ---
Date of Encounter: 02/27/19 Time of Encounter: 21:50 Labor Progress Note - Subjective Subjective: The patient is comfortable with her epidural. - Vital Signs Vital Signs: afeb,VSS - Cervix Cervix: 7/100/-1, vtx w/ BBOW - Heart Tones Heart Tones: 140s baseline, CAT 1 - [place]: Discharge. 3-4 minutes spontaneous - Interventions Interventions: 40.3 week IUP with spontaneous labor, TOLAC. Occasional heart rate decelerations but no repetitive pattern. Patient is doing well with her epidural. History of hep C positive without recent titers - Plan Plan: Amniotomy with moderate to large amount of pink tinged fluid seen followed by clear fluid.
--- NOTE | 2019-02-27 21:59 | Anesthesia Procedures ---
Date of Encounter: 02/27/19 Time of Encounter: 19:46 Procedures: Anesthesia - Epidural/Spinal Patient ID/Chart reviewed: Yes Patient examined: Yes OB Eval: Gestational age: 40 OB Eval: : 4 OB Eval: Hx Para: 2 (prev. del. c/s) OB Eval: Dilated at (cm): 4 OB Eval: Contractions: Non-stressed pattern Consent Obtained: Yes Supplemental Oxygen: None/Room Air Site Prep: Aseptic Technique, Sterile prep and drape, Povidone-Iodine 1% Patient position: upright Local Anesthetic: Lidocaine 1% Amount of Local Anesthetic used: 3 Touhy Needle Gauge: 18 Touhy Needle Depth (cm): 5 Catheter Depth at Skin (cm): 15 Test Dose (1.5% Lido + Epi): Volume given (mls): 3 Test Dose Result: Negative Loading Dose: 0.25% Marcaine (mls): 8 Loading Dose: Fentanyl (mcg): 100 Loading Dose Administered: Thru Catheter Infusion Med: 0.125% Bupivacaine w/ 2 mcg/ml Fentanyl Infusion Rate (mls/hr): [address]: Tegaderm, Tape Interspace Used: L3-L4 Loss of Resistance (BAKARI): Yes Blood: No CSF: No Paresthesia: No Procedure: IV #2 started right inner wrist, 20G with jloop and capped. Attempted 18G in right inner FA without success. Vitals + FHT's: Vital Signs Time 1944 1999 2004 2009 2014 2019 BP 115/76 132/86 124/80 118/77 112/73 127/78 Pulse 80 84 85 84 101 104 FHTs 130 130 130 130 130 130
[2019-02-27 23:22] LABS: Alanine Aminotransferase 26 Units/L (7-52); Aspartate Amino Transferase 33 Units/L (13-39); BUN/Creatinine Ratio 15 (6-26); Blood Urea Nitrogen 11 mg/dL (6-20); Lactate Dehydrogenase 179 Units/L (140-271); Uric Acid 3.8 mg/dL (2.3-7.6); eGFR For Non-African Americans > 60 (> 60)
--- NOTE | 2019-02-28 04:46 | OB/GYN Procedure Note ---
Delivery - Delivery Date: 02/28/19 Provider: Adriana uAguste Intrapartum events: none Delivery induction: none Delivery monitor: external FHT, external uterine Anesthesia: epidural Quantitated Blood Loss: 100 - (s) Infant A Delivery Date: 02/28/19 Infant Delivery Time: 04:16 Presentation: vertex Position: ANISA Route of delivery: Gender: Male Viability: Viable Pounds: 8 Ounces: 6 Weight Gram: 3.82 kg at 1 minute: 9 at 5 mins: 9 Shoulder Dystocia: not encountered Placenta: spontaneous Cord: 3 umbilical vessels - Repair Episiotomy: none Laceration Description: Labial (Left) - Complications Delivery complications: none Delivery comments: The patient was complete and pushing with epidural anesthesia after being returned from left lateral position. She had been having deep variable decelerations with contractions. With maternal effort she had a spontaneous vaginal delivery over an intact perineum of a vigorous male weighing 8 lbs. 6 oz. with Apgars of 9 at 1 minute and 9 at 5 minutes in the ANISA position. The infant was placed on the maternal abdomen, the cord was clamped and cut after pulsations ceased, and infant was handed to the nursery care team. Placenta was delivered spontaneous and intact, three-vessel cord confirmed. There was a left labial laceration which was repaired with 4-0 Monocryl in a running nonlocking fashion. Estimated blood loss 100 mL's. Complications none. Both mother and infant were recovering in stable condition in the LDR. Successful - Disposition Mom disposition: stable in LDR disposition: stable in LDR
[2019-02-28] MEDS ORDERED: Oxytocin 20 units/ LR 1000 mL 20 UNIT/1,000 ML BAG IVC SCH (05:12)
[2019-02-28] MEDS: Ibuprofen 600 MG TABLET PO SCH (05:35)
[2019-02-28] MEDS: Prenatal Vit/FA 1 EACH TABLET PO SCH (08:13)
[2019-02-28] MEDS: Acetaminophen 325 MG TABLET PO SCH (08:13)
[2019-02-28] MEDS: *HR* Buprenorphine HCl 8 MG TAB.SUBL SL SCH (10:02)
[2019-03-01] MEDS: Acetaminophen 325 MG TABLET PO SCH ×2 (00:58→19:41)
[2019-03-01] MEDS: Ibuprofen 600 MG TABLET PO SCH ×2 (00:58→19:41)
[2019-03-01 04:28] LABS: Basophils % 0.2 %; Eosinophils # 0.2 K/mcL (0.0-0.6); Eosinophils % 1.3 %; Hematocrit 34.2 % (35.3-44.9); Immature Granulocytes % 0.7 % (0-4); Lymphocytes # 3.4 K/mcL (0.6-4.6); Lymphocytes % 29.7 %; Mean Corpuscular HGB Conc 34.5 g/dL (31.6-35.5); Mean Corpuscular Volume 92.7 fL (83.0-100.0); Mean Platelet Volume 10.6 fL (9.4-12.4); Monocytes # 0.6 K/mcL (0.0-1.3); Monocytes % 5.5 %; Neutrophils # 7.1 K/mcL (1.6-8.9); Platelet Count 167 K/mcL (140-400); Red Blood Count 3.69 M/mcL (3.82-4.97); Red Cell Distribution Width 12.1 % (11.5-14.5); Segmented Neutrophils % 62.6 %
[2019-03-01 04:30] LABS: Hemoglobin 11.8 g/dL (11.5-15.4)
[2019-03-01] MEDS: *HR* Buprenorphine HCl 8 MG TAB.SUBL SL SCH (09:29)
[2019-03-01] MEDS: Prenatal Vit/FA 1 EACH TABLET PO SCH (09:29)
--- NOTE | 2019-03-01 09:53 | OB/GYN Progress Note ---
Date of Encounter: 03/01/19 Time of Encounter: 09:50 - Assessment and Plan (1) Hepatitis C Current Visit: Yes Status: Acute Qualifiers: Viral hepatitis chronicity: chronic Hepatic coma status: without hepatic coma Qualified Code(s): B18.2 - Chronic viral hepatitis C (2) History of seizures Current Visit: Yes Status: Acute (3) Substance abuse affecting , antepartum Current Visit: Yes Status: Acute (4) Tobacco abuse Current Visit: Yes Status: Acute (5) Vaginal after () Current Visit: Yes Status: Acute Pt meeting milestones. She declines to be discharged home today. Anticipate discharge home in am. Subjective - Subjective Interval history: Pt reports feeling well with no complaints. She reports good mood. Patient reports: appetite normal, voiding normally, pain well controlled, ambulating normally [place]: doing well Objective - Latest Vital Signs Latest vital signs: Vital Signs Temp Pulse Resp BP Pulse Ox 03/01/19 08:30 97.6 F 68 12 107/70 98 03/01/19 04:35 97.8 F 78 14 106/68 100 02/28/19 19:45 98.5 F 96 14 117/80 100 Intake and Output 02/28/19 03/01/19 03/01/19 23:59 07:59 15:59 Intake Total 940 / 1490 240 / 240 Output Total 2000 / 2700 1650 / 1650 Balance -1060 / -1210 -1410 / -1410 Intake: Oral 940 / 940 240 / 240 Output: Urine 2000 / 2700 1650 / 1650 Other: Meal Dinner Percent of Meal Consumed 90% Weight 63.503 kg Patient Weight 03/01/19 23:59 Weight 63.503 kg - Exam Lungs: bilateral: normal Chest: Normal S1, Normal S2 Extremities: Present: normal Abdomen: Present: soft Uterus: Present: firm Uterus Position: 1 Finger Below Umbilicus - Labs Labs: Laboratory Results - last 24 hr 03/01/19 04:12 WBC 11.3 H RBC 3.69 L Hgb 11.8 D Hct 34.2 L MCV 92.7 MCH 32.0 MCHC 34.5 RDW 12.1 Plt Count 167 MPV 10.6 Immature Gran % 0.7 Seg Neutrophils % 62.6 Lymphocytes % 29.7 Monocytes % 5.5 Eosinophils % 1.3 Basophils % 0.2 Neutrophils # 7.1 Lymphocytes # 3.4 Monocytes # 0.6 Eosinophils # 0.2 Basophils # 0.0
[2019-03-01] MEDS: hydrOXYzine pamoate 25 MG CAPSULE PO SCH (19:41)
[2019-03-02 06:46] LABS: HCV Quant Log 6.82 log IU/mL
[2019-03-02 08:33] VITALS: BP 94/60
--- NOTE | 2019-03-02 08:44 | Discharge Summary ---
Date of Encounter: 03/02/19 Time of Encounter: 08:42 - Discharge Diagnosis (1) Vaginal after () Priority: Primary Status: Acute Comments: S/P Delivery Day 2 Pain well controlled VSS Lochia light and without clots Voiding without difficulty Tolerating regular diet and passing flatus Breast Feeding Discharge to guest today POC per consult with Dr Littlejohn (2) History of low transverse section Priority: Secondary Status: Acute Comments: Successful (3) History of seizures Priority: Secondary Status: Acute Comments: Stable; no seizure activity during hospitalization for and (4) Substance abuse affecting , antepartum Priority: Secondary Status: Acute Comments: Subutex use during from non-[facility] provider verified via [facility] - Discharge Medications Prescriptions: New Breast Pump [BREAST PUMP] 1 each .ROUTE AD #1 each Docusate [Colace] 100 mg PO BID 30 Days capsule Ferrous Sulfate 325 mg PO DAILY #90 tablet hydrOXYzine pamoate [HydrOXYzine Pamoate] 50 mg PO BID #30 capsule Ibuprofen [Motrin] 600 mg PO Q6HR #30 tablet Acetaminophen [Tylenol] 650 mg PO Q6H tablet Continued Subutex 8 mg PO ONCE Flintstones 1 tab PO DAILY Home Medications: Flintstones 1 tab PO DAILY 10/10/18 [History] Subutex 8 mg PO ONCE 10/10/18 [History] Breast Pump [BREAST PUMP] 1 each .ROUTE AD #1 each 03/01/19 [Rx] Acetaminophen [Tylenol] 650 mg PO Q6H tablet 03/02/19 [Rx] Docusate [Colace] 100 mg PO BID 30 Days capsule 03/02/19 [Rx] Ferrous Sulfate 325 mg PO DAILY #90 tablet 03/02/19 [Rx] Ibuprofen [Motrin] 600 mg PO Q6HR #30 tablet 03/02/19 [Rx] hydrOXYzine pamoate [HydrOXYzine Pamoate] 50 mg PO BID #30 capsule 03/02/19 [Rx] Allergies/Adverse Reactions: Allergy/AdvReac Type Severity Reaction Status Date / Time No Known Allergies Allergy Verified 03/23/17 17:25 Data Procedures and tests throughout hospitalization: Laboratory Tests 02/27/19 02/27/19 02/27/19 18:40 18:40 22:38 WBC 10.7 RBC 4.68 Hgb 14.9 Hct 44.3 MCV 94.7 MCH 31.8 MCHC 33.6 RDW 12.4 Plt Count 191 MPV 10.6 Immature Gran % 0.6 Seg Neutrophils % 70.4 Lymphocytes % 21.9 Monocytes % 6.3 Eosinophils % 0.6 Basophils % 0.2 Neutrophils # 7.5 Lymphocytes # 2.3 Monocytes # 0.7 Eosinophils # 0.1 Basophils # 0.0 BUN 11 Creatinine 0.72 Est GFR ( Amer) > 60 Est GFR (Non-Af Amer) > 60 BUN/Creatinine Ratio 15 Uric Acid 3.8 AST 33 ALT 26 Lactate Dehydrogenase 179 Urine Opiates Screen Negative Ur Barbiturates Screen Negative Ur Phencyclidine Scrn Negative Ur Amphetamines Screen Negative U Benzodiazepines Scrn Negative Urine Cocaine Screen Negative U Marijuana (THC) Screen Negative Ur Drug Screen Interp See Below 03/01/19 04:12 WBC 11.3 H RBC 3.69 L Hgb 11.8 D Hct 34.2 L MCV 92.7 MCH 32.0 MCHC 34.5 RDW 12.1 Plt Count 167 MPV 10.6 Immature Gran % 0.7 Seg Neutrophils % 62.6 Lymphocytes % 29.7 Monocytes % 5.5 Eosinophils % 1.3 Basophils % 0.2 Neutrophils # 7.1 Lymphocytes # 3.4 Monocytes # 0.6 Eosinophils # 0.2 Basophils # 0.0 BUN Creatinine Est GFR ( Amer) Est GFR (Non-Af Amer) BUN/Creatinine Ratio Uric Acid AST ALT Lactate Dehydrogenase Urine Opiates Screen Ur Barbiturates Screen Ur Phencyclidine Scrn Ur Amphetamines Screen U Benzodiazepines Scrn Urine Cocaine Screen U Marijuana (THC) Screen Ur Drug Screen Interp Date of admission: 02/27/19 19:21 Primary care physician: PCP NONE Consults: 02/28/19 05:12 Consult to [employer] Supervisor [CONS] Routine Comment: Vaginal delivery, consult needed Discharging clinician: Rosa Wilder - Patient Status Disposition: Home, Self-Care Condition: Good Functional capacity at discharge: independent ambulation Overall status at discharge: patient is progressing back to baseline - Discharge Instructions Follow Up With: NONE,PCP [Primary Care Provider] - Adriana Auguste MD [Partnered Physician] - - Diet and Activity Activity: increase activity as tolerated Diet: regular diet Hospital Course Reason for admission: active labor, IUP at term Delivery: () Episiotomy: none Laceration: other Other procedures: none complications: spinal headache Discharge diagnosis: IUP at term delivered [place] baby: male Time spent discussing smoking cessation with patient: 3 to 10 minutes Time Attestation: Total time spent providing and/or coordinating discharge services: Time Spent: Less than 30 minutes Exam - Constitutional Vitals: Temp Pulse Resp BP Pulse Ox 98.4 F 74 14 94/60 99 03/02/19 08:32 03/02/19 08:32 03/02/19 08:32 03/02/19 08:32 03/02/19 08:32 General appearance IM: cooperative, A&O X 3, pleasant - Respiratory Respiratory exam: Present: CTAB - Cardiovascular Cardiovascular exam IM: Present: RRR, +S1, +S2 - GI/Abdominal GI/Abdominal exam IM: normal bowel sounds, soft - Rectal Rectal exam: deferred - Uterine Tone: Firm Uterus Position: At Umbilicus, Midline - Extremities Exam Extremities exam IM: Present: normal capillary refill, normal inspection, radial pulses palpable and symmetrical - Neurological Exam Neurological exam: alert, oriented X3
[2019-03-02] MEDS: hydrOXYzine pamoate 25 MG CAPSULE PO SCH (09:00)
[2019-03-02] MEDS: Prenatal Vit/FA 1 EACH TABLET PO SCH (09:00)
[2019-03-02] MEDS: *HR* Buprenorphine HCl 8 MG TAB.SUBL SL SCH (09:00)
[2019-03-02] MEDS: Ibuprofen 600 MG TABLET PO SCH (09:04)
[2019-03-02 10:19] LABS: HCV Quant Interpretation DETECTED (Not Detected)
== END 2019-03-02 11:00 | disposition home or self-care (01) | DRG 560 ==
LOC: 1NENULAB → 1NENUOBS 02-28 06:17
PROVIDERS: ADMIT Advanced Practice Midwife; ATTEND Advanced Practice Midwife